=== PATIENT | male | born 1965 | race Caucasian/White ===

== ENCOUNTER 2020-08-12 17:27 | Inpatient (IN) | payer OTHER ==
[~2020-08-12] VITALS: Ht 180.3 cm; Wt 121.1 kg
[2020-08-12 17:33] VITALS: BP 130/49
[2020-08-12] MEDS ORDERED: ASPIRIN ADULT L81 M1 PO (17:37)
[2020-08-12] MEDS ORDERED: NORVASC5 MG PO (17:37)
[2020-08-12 17:42] VITALS: BP 158/86
[2020-08-12 17:43] LABS: BASO % 0.4 % (0.0-1.0); EOS # 0.1 10*3/uL (0.0-0.4); EOS % 1.7 % (1.0-4.0); HEMATOCRIT 45.3 % (42.0-52.0); LYMPH # 2.9 10*3/uL (1.3-4.4); MEAN CELL VOLUME 86.8 fl (80.0-94.0); MEAN CORPUSCULAR HGB 29.3 pg (27.0-31.0); MEAN CORPUSCULAR HGB CONC 33.8 g/dl (33.0-37.0); MEAN PLATELET VOLUME 9.7 fl (9.6-12.3); MONO # 0.6 10*3/uL (0.1-1.0); MONO % 7.3 % (3.0-9.0); NEUT # 4.1 10*3/uL (2.3-7.9); NEUT % 53.3 % (47.0-73.0); PLATELET COUNT AUTOMATED 238 10*3/uL (130-400); RED BLOOD COUNT 5.22 10*6/uL (4.50-5.90); RED CELL DISTRI WIDTH 11.7 % (0-14.5); WHITE BLOOD COUNT 7.7 10*3/uL (4.8-10.8)
[2020-08-12 17:53] LABS: ACT PARTIAL THROMBO TIME 25.8 SECONDS (20.0-32.1)
[2020-08-12 18:01] LABS: ALKALINE PHOSPHATASE 57 U/L (45-117); BUN 11 mg/dl (7-24); CHLORIDE 106 mmol/L (98-107); CREATININE 1.03 mg/dL (0.70-1.30); SGOT/AST 23 IU/L (3-35); SGPT/ALT 42 U/L (12-78); SODIUM 139 mmol/L (136-145)
[2020-08-12 18:04] LABS: TROPONIN I < 0.015 ng/ml (<0.045)
[2020-08-12 18:33] VITALS: BP 143/83
[2020-08-12 20:05] VITALS: BP 164/92
[2020-08-13] VITALS: BP 124/78
[2020-08-13 06:19] LABS: BASO % 0.4 % (0.0-1.0); EOS # 0.2 10*3/uL (0.0-0.4); EOS % 1.9 % (1.0-4.0); HEMATOCRIT 45.2 % (42.0-52.0); LYMPH # 3.9 10*3/uL (1.3-4.4); LYMPH % 49.2 % (27.0-41.0); MEAN CELL VOLUME 87.9 fl (80.0-94.0); MEAN CORPUSCULAR HGB 28.8 pg (27.0-31.0); MEAN CORPUSCULAR HGB CONC 32.7 g/dl (33.0-37.0); MEAN PLATELET VOLUME 10.1 fl (9.6-12.3); MONO # 0.6 10*3/uL (0.1-1.0); NEUT # 3.3 10*3/uL (2.3-7.9); NEUT % 41.1 % (47.0-73.0); PLATELET COUNT AUTOMATED 219 10*3/uL (130-400); RED BLOOD COUNT 5.14 10*6/uL (4.50-5.90); RED CELL DISTRI WIDTH 11.7 % (0-14.5); WHITE BLOOD COUNT 7.9 10*3/uL (4.8-10.8)
[2020-08-13 06:22] LABS: ALBUMIN 3.6 gm/dl (3.1-4.5); BUN 12 mg/dl (7-24); CHLORIDE 109 mmol/L (98-107); CHOLESTEROL 160 mg/dL (<200); CREATININE 1.02 mg/dL (0.70-1.30); POTASSIUM 3.8 mmol/L (3.5-5.1); SGOT/AST 15 IU/L (3-35); SGPT/ALT 38 U/L (12-78); SODIUM 139 mmol/L (136-145); TOTAL PROTEIN 6.5 gm/dL (6.4-8.2); TRIGLYCERIDES 210 mg/dl (<150); VLDL CHOLESTEROL 42 mg/dL (6-40)
[2020-08-13 06:23] LABS: ALKALINE PHOSPHATASE 54 U/L (45-117); HDL CHOLESTEROL 28 mg/dl (40-60); LDL CHOLESTEROL 90 mg/dL (9-159)
[2020-08-13 08:00] VITALS: BP 158/100
[2020-08-13 12:00] VITALS: BP 152/97
[2020-08-13 16:00] VITALS: BP 134/78
[2020-08-13 20:00] VITALS: BP 127/81
[2020-08-14] VITALS: BP 123/73
[2020-08-14 08:13] VITALS: BP 142/88
[2020-08-14 12:00] VITALS: BP 150/88
[2020-08-14 16:00] VITALS: BP 146/76
[2020-08-14] MEDS ORDERED: AMLODIPINE BESYL5 MG PO (16:33)
== END 2020-08-14 17:40 | disposition home or self-care (01) | DRG 282 ==
LOC: ED 17:27 → EDHOLD 18:14 → 5E 18:14
PROVIDERS: Internal Medicine; Student in an Organized Health Care Education/Training Program; ADMIT Internal Medicine; ATTEND Internal Medicine
DX: I21.4 Non-ST elevation (NSTEMI) myocardial infarction (principal); I10 Essential (primary) hypertension; R73.9 Hyperglycemia, unspecified; E66.9 Obesity, unspecified; R73.03 Prediabetes; E83.51 Hypocalcemia; I45.10 Unspecified right bundle-branch block; E83.41 Hypermagnesemia; Z88.2 Allergy status to sulfonamides; Z87.891 Personal history of nicotine dependence; Z82.49 Family history of ischemic heart disease and other diseases of the circulatory system; Z83.3 Family history of diabetes mellitus; Z79.899 Other long term (current) drug therapy; Z79.82 Long term (current) use of aspirin; Z68.37 Body mass index [BMI] 37.0-37.9, adult